=== PATIENT | female | born 1960 | race Caucasian/White ===

== ENCOUNTER 2022-07-31 10:53 | Emergency (ER) | payer OTHER, SELFPAY ==
[2022-07-31 11:07] VITALS: BP 174/75; PULSE 99; RESP 18; TEMP 36.4; O2SAT 96; BMI 29.7
--- NOTE | 2022-07-31 11:33 | CRLHL7_ITS ---
For Patients: As a result of the Century Cures Act, medical imaging exams and procedure reports are released immediately into your electronic medical record. You may view this report before your referring provider. If you have questions, please contact your health care provider. INDICATION: Right-sided pain, history of renal stones. COMPARISON: None. TECHNIQUE: Noncontrast CT of the abdomen and pelvis. FINDINGS: Right lower lobe calcified granuloma. Normal heart size. No pericardial effusion. Normal liver size and contour. Numerous hepatic calcifications. Diffuse hepatic steatosis. Normal gallbladder. No biliary dilatation. Diffuse splenic calcifications. The pancreas, adrenal glands, stomach and duodenum appear normal. Tiny nonobstructing left-sided renal calculi. There is a right proximal ureteral calculus (series 2 image 61) measuring approximately 1.1 cm. No significant hydronephrosis. There is inflammatory fat stranding at the UPJ on the right. Normal course and caliber of the abdominal aorta and the IVC. There is moderate atherosclerotic disease of the abdominal aorta. The patient has no lymphadenopathy. Uterus absent. Bladder unremarkable. No bowel obstruction. No bowel wall thickening. No free fluid. No significant body wall or osseous abnormality. IMPRESSION: 1. Right UPJ calculus measuring 1.1 cm with associated periureteral fat stranding and urothelial thickening which may be infectious or inflammatory. 2. No significant hydronephrosis. 3. Severe hepatic steatosis. Please note that all CT scans at this facility use dose modulation, iterative reconstruction, and/or weight-based dosing when appropriate to reduce radiation dose to as low as reasonably achievable. Dictated by Donald Gasca MD @ 07/31/2022 12:41:43 PM (Electronically Signed)
--- NOTE | 2022-07-31 11:34 | ED.GENADULT ---
HPI - General Adult General Chief complaint: Flank Pain Stated complaint: Lower abdominal pain, nausea Time Seen by Provider: 07/31/22 11:12 History of Present Illness HPI narrative: This 62-year-old female comes in reporting right flank pain radiating to the right upper and lower abdomen. She states that she has history of many kidney stones in the past and symptoms are similar. She reports nausea and vomiting. She states that she can not get comfortable and that movement or position does not seem to make any difference. She also reports hematuria. Related Data Home Medications Medication Instructions Recorded Confirmed aspirin 81 mg tablet,delayed 81 mg PO QDAY 02/28/22 release atorvastatin 10 mg tablet 10 mg PO QPM 02/28/22 multivitamin 1 tab PO QDAY 02/28/22 Previous Rx's Medication Instructions Recorded tramadol 50 mg tablet 50 - 100 mg PO Q6H PRN pain #60 02/28/22 tabs glipizide 10 mg tablet, extended 10 mg PO QDAY #90 tabs 03/01/22 release 24 hr metformin 500 mg tablet 1,000 mg PO BIDWMEAL #360 tabs 03/02/22 gabapentin 300 mg capsule See Rx Instructions .Route 04/15/22 .COMPLEX #360 caps hydrocodone 5 mg-acetaminophen 325 1 tab PO Q4-6H PRN pain #30 tabs 07/31/22 mg tablet ketorolac 10 mg tablet 10 mg PO TID 5 days #20 tabs 07/31/22 ondansetron HCl 4 mg tablet 4 mg PO Q6H #20 tabs 07/31/22 tamsulosin 0.4 mg capsule (Flomax) 0.4 mg PO DAILY #10 caps 07/31/22 Allergies Allergy/AdvReac Type Severity Reaction Status Date / Time Sulfa (Sulfonamide Allergy Verified 07/31/22 11:07 Antibiotics) Review of Systems Status of ROS: Reports: 10 or more systems reviewed and unremarkable except as noted in History and below Narrative: Constitutional: No fevers, no weight gain or loss. Eyes: No discharge. No vision changes. HENT: No congestion, no sore throat, no ear pain. Cardiovascular: No chest pain, no palpitations. Respiratory: No shortness of breath, no wheezes, no cough. Gastrointestinal: Right flank pain and abdominal pain with nausea and vomiting. Genitourinary: No dysuria. She has gross hematuria. Musculoskeletal: Normal range of motion. Skin: No rashes, no pruritis. Neurological: No dizziness, weakness, sensory change, speech change. Endo/Heme/Allergies: No bruising or bleeding. No polydipsia. Pysch: no suicidality, no anxiety, no insomnia. All other systems reviewed and are negative. [facility] Medical History (Updated 07/31/22 @ 15:30 by Joseph Boyer MD) Chronic back pain Surgical History (Updated 02/28/22 @ 12:30 by Joseph Arita MD) Status post appendectomy Status post bilateral oophorectomy Status post Status post hysterectomy Exam Narrative: Exam Narrative: Constitutional: Well-developed, well-nourished, no acute distress. HEENT: Normocephalic, atraumatic. Neck: Normal range of motion. Nontender. Supple. Heart: Regular. No murmurs. Normal rate. Intact distal pulses. Lungs: Clear to auscultation. No chest discomfort. No wheezes, rhonchi, or rales. Abdomen: Normal bowel sounds. Tenderness in the right flank and right abdomen.. No rebound tenderness. Genitalia: Deferred. Back: No midline tenderness. Normal range of motion. Extremities: Normal range of motion. No injury. Skin: Intact. No rash. Warm. No erythema or pallor. Neurologic: No altered sensation. No weakness. Alert and oriented. Psychiatric: No suicidality. No anxiety or depression. No insomnia. Nursing notes and vitals signs are reviewed. Const: Vital Signs, click to edit/add: Vital Signs - 24 hr 07/31/22 11:07 Temperature 97.5 F L Pulse Rate [Right Pulse Oximeter] 99 Respiratory Rate 18 Blood Pressure [Ri ght Upper Arm] 174/75 H Pulse Oximetry 96 Oxygen Delivery Me thod Room Air Course Vital Signs Vital signs: Initial Vital Signs Temperature 97.5 F L 07/31/22 11:07 Temperature Source Temporal Artery Scan 07/31/22 11:07 Pulse Rate 99 07/31/22 11:07 Respiratory Rate 18 07/31/22 11:07 Blood Pressure 174/75 H 07/31/22 11:07 Blood Pressure Mean 108 07/31/22 11:07 Blood Pressure Position Sitting 07/31/22 11:07 Pulse Oximetry 96 07/31/22 11:07 Oxygen Delivery Method 12/29/22 11:07 Vital Signs Temperature 97.5 F L 07/31/22 11:07 Pulse Rate 99 07/31/22 11:07 Respiratory Rate 18 07/31/22 11:07 Blood Pressure 174/75 H 07/31/22 11:07 Pulse Oximetry 96 07/31/22 11:07 Oxygen Delivery Method 07/31/22 11:07 Temperature 97.5 F L 07/31/22 11:07 Pulse Rate 99 07/31/22 11:07 Respiratory Rate 18 07/31/22 11:07 Blood Pressure 174/75 H 07/31/22 11:07 Pulse Oximetry 96 07/31/22 11:07 Oxygen Delivery Method 07/31/22 11:07 Medical Decision Making MDM Narrative Medical decision making narrative: This patient comes in with right flank and abdominal pain as described above. She has a history of kidney stones and does report gross hematuria recently. Urinalysis does show gross hematuria but no sign of infection. CT imaging identifies a large stone in the proximal ureter on the right side. This measures at 1.1 cm. The patient received IV doses of Dilaudid 0.5 mg and Toradol 30 mg along with Zofran 4 mg. This brought sufficient but somewhat temporary relief to her pain. Attempt was made to connect her with a urologist but no beds are available. A call was made to 14 hospitals to arrange for some kind of resource for for this patient but none were available for transfer. Additionally our own hospital is full with patient's boarding in the ER. I spoke then with a urologist glue bone drier at [facility], Dr. Leonard, who states that she is okay to return home with pain medication because there is no other complication. She will need help and he is able to see her after the holiday this coming week in his clinic. This phone number is provided for the patient. I instructed the patient to return if pain is not adequately controlled or other symptoms develop. Lab Data Labs: Lab Results 07/31/22 07/31/22 07/31/22 Range/Units 11:23 11:40 11:40 WBC 9.68 (4.50-11.00) K/uL RBC 4.88 (4.00-5.20) m/uL Hgb 14.2 (12.0-16.0) gm/dL Hct 42.9 (33.0-51.0) % MCV 88 (80-100) fL MCH 29 (26-34) pg MCHC 33 (32-36) gm/dL RDW Coeff of Skyler 12.3 (11.5-15.5) % Plt Count 309 (140-440) K/uL Neut % (Auto) 66.7 (42.0-72.0) % Lymph % (Auto) 25.5 (20-44) % [place] % (Auto) 4.9 (0.0-11.0) % Eos % (Auto) 2.2 (0.0-7.0) % Baso % (Auto) 0.3 (0.0-3.0) % Neut # (Auto) 6.46 (1.7-7.0) K/uL Lymph # (Auto) 2.47 (0.90-2.90) K/uL [place] # (Auto) 0.50 (0.00-0.90) K/UL Eos # (Auto) 0.21 (0.00-0.50) K/uL Baso # (Auto) 0.03 (0.00-0.30) K/uL Sodium 138 (135-149) mmol/L Potassium 4.8 (3.6-5.1) mmol/L Chloride 106 (96-114) mmol/L Carbon Dioxide 19 L (20-32) mmol/L BUN 18 (7-30) mg/dL Creatinine 0.6 (0.5-1.5) mg/dL Estimated Creat Clear 51.02 Estimated GFR 102 ml/min Glucose 320 H (60-115) mg/dL Calcium 9.3 (8.4-10.6) mg/dL Urine Color Karol A (Yellow) Urine Appearance Slightly Cloudy A (Clear) Urine pH 6.0 (5.0-8.5) Ur Specific Fowler 1.025 (1.000-1.030) Urine Protein 1+ A (Negative) Urine Glucose (UA) 3+ A (Negative) Urine Ketones 1+ A (Negative) Urine Blood 3+ A (Negative) Urine Nitrite Negative (Negative) Urine Bilirubin Negative (Negative) Urine Urobilinogen 0.2 (0.2-1.0) Ur Leukocyte Esterase Negative (Negative) Urine RBC 50-100 A (0-2) Urine WBC 0-2 (0-5) Ur Squamous Epith Cells Few (None-Few) Urine Bacteria Few A (None) Imaging Data CT scan - abdomen: Attestation: I have reviewed the pertinent imaging results. Radiologist's impression: 1. Right UPJ calculus measuring 1.1 cm with associated periureteral fat stranding and urothelial thickening which may be infectious or inflammatory. 2. No significant hydronephrosis. 3. Severe hepatic steatosis. Discharge Plan Discharge Clinical Impression: Calculus, ureteral Patient Disposition: Home w/ Parent or Adult Condition: Stable Additional Instructions: Take medication as needed and indicated. Arrange follow-up appointment with urology clinic by calling [phone]. State to the hotel or motel receptionist that Dr. Leonard is wanting to see her in clinic as soon as is possible next week. Return to emergency department if symptoms are worsening. Prescriptions: New hydrocodone-acetaminophen 5-325 mg tablet 1 tab PO Q4-6H PRN (Reason: pain) Qty: 30 0RF ondansetron HCl 4 mg tablet 4 mg PO Q6H Qty: 20 0RF ketorolac 10 mg tablet 10 mg PO TID 5 Days Qty: 20 0RF tamsulosin [Flomax] 0.4 mg capsule 0.4 mg PO DAILY Qty: 10 2RF No Action atorvastatin 10 mg tablet 10 mg PO QPM aspirin 81 mg tablet,delayed release (DR/EC) 81 mg PO QDAY multivitamin Tablet 1 tab PO QDAY tramadol 50 mg tablet 50 - 100 mg PO Q6H PRN (Reason: pain) Qty: 60 1RF glipizide 10 mg tablet extended release 24hr 10 mg PO QDAY Qty: 90 3RF metformin 500 mg tablet 1,000 mg PO BIDWMEAL Qty: 360 3RF gabapentin 300 mg capsule See Rx Instructions .ROUTE .COMPLEX Qty: 360 3RF Dose Instruction: TAKE 1 CAPSULE EVERY MORNING, 1 CAPSULE AT 2PM AND 2 CAPSULES AT BEDTIME Rx Instructions: TAKE 1 CAPSULE EVERY MORNING, 1 CAPSULE AT 2PM AND 2 CAPSULES AT BEDTIME Follow Up/Referrals: Joseph Arita MD [Primary Care Provider] - Stand Alone Forms: [facility] Info Instructions
[2022-07-31 11:39] LABS: Appearance Urine Slightly Cloudy (Clear); Bilirubin Urine Negative (Negative); Blood Urine 3+ (Negative); Color Urine Amber (Yellow); Glucose Urine 3+ (Negative); Ketones Urine 1+ (Negative); Leukocyte Esterase Urine Negative (Negative); Nitrite Urine Negative (Negative); Protein Urine 1+ (Negative); Specific Gravity Urine 1.025 (1.000-1.030); Urobilinogen Urine 0.2 (0.2-1.0)
[2022-07-31] MEDS: ONDANSETRON 2 MG/ML inj 4 MG IVP (11:49)
[2022-07-31] MEDS: KETOROLAC 30 MG/ML inj IVP (11:49)
[2022-07-31] MEDS: HYDROmorphone 0.5 mg/0.5 ml inj IVP ×2 (11:49→15:48)
[2022-07-31 11:52] LABS: Basophils Absolute Auto 0.03 K/uL (0.00-0.30); Basophils Percent Auto 0.3 % (0.0-3.0); Eosinophils Absolute Auto 0.21 K/uL (0.00-0.50); Eosinophils Percent Auto 2.2 % (0.0-7.0); Hematocrit 42.9 % (33.0-51.0); Hemoglobin* 14.2 gm/dL (12.0-16.0); Immature Granulocytes Abs Auto 0.04 K/uL (0.00-0.30); Immature Granulocytes Pct Auto 0.4 %; Lymphocytes Absolute Auto 2.47 K/uL (0.90-2.90); Lymphocytes Percent Auto 25.5 % (20-44); Mean Corpuscular HGB Conc 33 gm/dL (32-36); Mean Corpuscular Hemoglobin 29 pg (26-34); Mean Corpuscular Volume 88 fL (80-100); Monocytes Percent Auto 4.9 % (0.0-11.0); Neutrophils Absolute Auto 6.46 K/uL (1.7-7.0); Neutrophils Percent Auto 66.7 % (42.0-72.0); Platelet Count* 309 K/uL (140-440); RDW Coefficient of Variation % 12.3 % (11.5-15.5); Red Blood Count 4.88 m/uL (4.00-5.20); White Blood Count* 9.68 K/uL (4.50-11.00)
[2022-07-31 11:52] LABS: Bacteria Urine Few; RBC Urine 50-100 (0-2); Squamous Epithelial Cell Urine Few (None-Few); WBC Urine 0-2 (0-5)
[2022-07-31 11:55] LABS: Slide Review Reflex No
[2022-07-31 12:03] LABS: Chloride* 106 mmol/L (96-114); Potassium* 4.8 mmol/L (3.6-5.1); Sodium* 138 mmol/L (135-149)
[2022-07-31 12:06] LABS: Blood Urea Nitrogen* 18 mg/dL (7-30); Carbon Dioxide* 19 mmol/L (20-32); Creatinine* 0.6 mg/dL (0.5-1.5); Est. Creatinine Clearance* 51.02; Estimated Glomerular Filt Rate 102 ml/min; Glucose* 320 mg/dL (60-115)
[2022-07-31 12:07] LABS: Calcium* 9.3 mg/dL (8.4-10.6)
== END 2022-07-31 15:56 | disposition home or self-care (01) ==
PROVIDERS: Emergency Provider Emergency Medicine Emergency Medical Services; PCP Family Medicine
DX: N20.1 Calculus of ureter (principal)
CPT/HCPCS: 36415; 74176; 80048; 81001; 85025; 87086; 96374; 96375; 96376; 99284; 99285; J1170; J1885; J2405

== ENCOUNTER 2022-08-19 13:15 | Outpatient (CLI) | payer OTHER, SELFPAY ==
[2022-08-19 17:49] LABS: Cholesterol* 239 mg/dL (90-199)
[2022-08-19 17:50] LABS: HDL Cholesterol* 42 mg/dL (>=50); LDL Cholesterol Calculated 142 mg/dL (<100); Triglycerides* 277 mg/dL (40-149)
== END 2022-08-19 13:16 | disposition home or self-care (01) ==
PROVIDERS: PCP Family Medicine; Visit Provider Family Medicine
DX: E78.5 Hyperlipidemia, unspecified (principal); E13.9 Other specified diabetes mellitus without complications; Z13.29 Encounter for screening for other suspected endocrine disorder
CPT/HCPCS: 80061; 84443

== ENCOUNTER 2022-09-04 10:07 | Outpatient (CLI) | payer OTHER, SELFPAY ==
--- NOTE | 2022-09-04 10:45 | CRLHL7_ITS ---
For Patients: As a result of the Cures Act, medical imaging exams and procedure reports are released immediately into your electronic medical record. You may view this report before your referring provider. If you have questions, please contact your health care provider. DIGITAL DIAGNOSTIC BILATERAL MAMMOGRAM USING TOMOSYNTHESIS AND COMPUTER-AIDED DETECTION CLINICAL HISTORY: LEFT breast lump. COMPARISON: 06/22/2028, 11/03/2018, 07/08/2017. TECHNIQUE: Digital BILATERAL mammogram in four projections. Tomosynthesis and CAD utilized. BREAST COMPOSITION: The breasts are almost entirely fatty. FINDINGS: 3D CC/MLO BILATERAL mammogram images submitted. No suspicious findings. No architectural distortion. No adenopathy. Benign calcifications. IMPRESSION: Normal BILATERAL mammograms. No evidence of breast malignancy. RECOMMENDATIONS: Annual BILATERAL screening mammography. BI-RADS Category 2: Benign A lay language report of this examination will be provided to the patient. Dictated by Power Pena MD @ 09/05/2022 8:21:21 AM jj/Dictated by: Power Pena MD @ 09/05/2022 8:21:00 AM (Electronically Signed)
--- NOTE | 2022-09-04 11:00 | CRLHL7_ITS ---
For Patients: As a result of the Century Cures Act, medical imaging exams and procedure reports are released immediately into your electronic medical record. You may view this report before your referring provider. If you have questions, please contact your health care provider. Indication: MASS OF LEFT SIDE OF NECK Technique: Post contrast CT chest. 86 cc Isovue 370 intravenous contrast. Please note that all CT scans at this facility use dose modulation, iterative reconstruction, and/or weight-based dosing when appropriate to reduce radiation dose to as low as reasonably achievable. Comparison: CT neck same day Findings: Benign calcified granuloma within the right lower lobe measuring 7 millimeters, unchanged from CT abdomen 07/31/2022. Mild dependent atelectasis. No pleural effusion. No pulmonary edema. Calcified granulomas within the liver and spleen. Diffuse hepatic steatosis. Adrenal glands normal. No hiatal hernia. Visualized stomach appears normal. No mediastinal, hilar or axillary adenopathy. Ovoid soft tissue mass in the left supraclavicular space measuring 2.8 x 2.2 cm. Thyroid normal, as visualized. No fracture. Impression: 2.8 x 2.2 cm left supraclavicular mass. This is amenable to ultrasound-guided core needle biopsy at [facility]. Sequela of granulomatous disease. Please note that all CT scans at this facility use dose modulation, iterative reconstruction, and/or weight-based dosing when appropriate to reduce radiation dose to as low as reasonably achievable. Dictated by Power Pena MD @ 09/05/2022 10:06:02 AM (Electronically Signed)
--- NOTE | 2022-09-04 11:00 | CRLHL7_ITS ---
For Patients: As a result of the Century Cures Act, medical imaging exams and procedure reports are released immediately into your electronic medical record. You may view this report before your referring provider. If you have questions, please contact your health care provider. INDICATION: Left neck mass. COMPARISON: None available. TECHNIQUE: CT soft tissue neck with IV contrast. ICD 370, 86 cc FINDINGS: Normal bilateral parotid and submandibular glands. Normal thyroid gland. In the left supraclavicular region, there is an ovoid soft tissue mass measuring 2.6 x 2.2 cm (series 4, image 54) which likely represents an enlarged lymph node. Smaller mildly prominent but otherwise normal-sized lymph nodes inferior to the left parotid gland measuring 14 mm in maximal diameter (series forms 37) and superficial to the left sternocleidomastoid muscle open measuring 11 mm (series 4, image 41). No enlarged lymph nodes elsewhere within the neck. No superior mediastinal adenopathy. Nasopharynx and oropharynx are clear. No inflammation within the parapharyngeal fat pads or retropharyngeal space. No definite mass or asymmetry at the base of tongue. Normal thickness of the epiglottis. Normal glottis with symmetric vocal cords. Lung apices are clear. Normal alignment of cervical spine. No prevertebral soft tissue swelling. Visualized paranasal sinuses and mastoid air cells are clear. IMPRESSION: 1. In the left supraclavicular region, ovoid soft tissue mass measures 2.6 x 2.2 centimeters. Finding likely represents an enlarged lymph node. This may be amenable to tissue sampling under ultrasound guidance. 2. Smaller mildly prominent but otherwise normal-sized lymph nodes in the left neck as described above. 3. No adenopathy elsewhere. 4. Normal deep soft tissues of the neck. 5. No prevertebral soft tissue swelling Please note that all CT scans at this facility use dose modulation, iterative reconstruction, and/or weight-based dosing when appropriate to reduce radiation dose to as low as reasonably achievable. Dictated by Boogie Mitchell MD @ 09/05/2022 8:30:26 AM (Electronically Signed)
[2022-09-04 11:19] LABS: Creatinine* 0.6 mg/dL (0.5-1.5); Estimated Glomerular Filt Rate 102 ml/min
== END 2022-09-04 10:08 | disposition home or self-care (01) ==
LOC: MAMMO 10:08
PROVIDERS: PCP Family Medicine; Visit Provider Surgery
DX: R22.1 Localized swelling, mass and lump, neck (principal); N63.20 Unspecified lump in the left breast, unspecified quadrant; R59.1 Generalized enlarged lymph nodes
CPT/HCPCS: 36415; 70491; 71260; 77066; 82565; G0279; Q9967

== ENCOUNTER 2022-09-22 12:47 | Outpatient (CLI) | payer OTHER, SELFPAY | END 2022-09-22 12:48 | disposition home or self-care (01) | LOC: AMB 09-24 22:43 | PROVIDERS: PCP Family Medicine; Visit Provider Emergency Medicine | DX: S49.81XA Other specified injuries of right shoulder and upper arm, initial encounter (principal); S89.91XA Unspecified injury of right lower leg, initial encounter; W00.0XXA Fall on same level due to ice and snow, initial encounter; Y92.046 Garden or yard of boarding-house as the place of occurrence of the external cause | CPT/HCPCS: A0425; A0433 ==

== ENCOUNTER 2023-06-15 08:44 | Outpatient (CLI) | payer OTHER, SELFPAY | END 2023-06-15 08:45 | disposition home or self-care (01) | LOC: LONREF 08:48 | PROVIDERS: PCP Family Medicine; Visit Provider Family Medicine | DX: Z00.00 Encounter for general adult medical examination without abnormal findings (principal); E78.5 Hyperlipidemia, unspecified | CPT/HCPCS: 80061 ==

== ENCOUNTER 2024-06-28 10:51 | Outpatient (CLI) | payer BC, SELFPAY ==
--- OUTSIDE RECORDS SUMMARY | 2024-06-28 10:56 | XMS_ITS | Clinical Summary ---
Author Organization Formerly [facility], 1928–1983 Address [address] [address] Care Team Providers Care Premium Cancellation Clerk Name Role Phone Srikanth Arita MD Primary Care Provider [phone] Source Comments You are receiving this document as you are listed as the primary care provider,follow-up provider, or the patient has been referred to you for consultation.This is in compliance with the Medicare and[facility] EHR Incentive [facility],which states Providers who transition their patient to another setting of careor provider of care or refers their patient to another provider of care shouldprovide summary care record for each transition of care or referral. [employer] Allergies Active Allergy Reactions Criticality Noted Date Comments Opium Headache,Nausea And Vomiting 10/20/2018 Other 09/04/1995 PN: LW Other1: -NKA Review Contrast Media 09/04/1995 PN: LW CM1: CONTRAST- NKA Reaction : Review Food Intolerance PN: LW FI1: NKA Sulfa Antibiotics Nausea High 08/12/2022 Tamsulosin Gastrointestinal,Nausea High 08/12/2022 Acetaminophen Gastrointestinal 12/10/2022 Nausea Medications Medication Sig Dispensed Refills Start Date End Date Status rosuvastatin (CRESTOR) 5 MG tablet Take 1 Tablet (5 mg) by mouth daily. 90 Tablet 3 10/22/2022 Active metFORMIN (GLUCOPHAGE) 500 MG tablet Take 2 Tablets (1,000 mg) by mouth two times a day. 10/22/2022 Active insulin lispro, human, (HUMALOG) 100 UNIT/ML injection pen Inject 2-10 Units subcutaneously three times daily before meals. Blood sugar 150-200 give 2 units Blood sugar 201-250 give 4 units Blood sugar 251-300 give 6 units Blood sugar 301-350 give 8 units Blood sugar greater than 351 give 10 units. If blood sugar is greater than 351 give insulin as directed. Recheck blood sugar in 2 hours. If blood sugar is still higher than 350, call your provider 1 mL 3 10/22/2022 Active glipiZIDE XL (GLUCOTROL XL) 10 MG 24 hour release tablet Take 2 Tablets (20 mg) by mouth daily. 90 Tablet 3 10/22/2022 Active gabapentin (NEURONTIN) 300 MG capsule Take 3 Capsules (900 mg) by mouth daily at bedtime. 10/22/2022 Active Cholecalciferol (VITAMIN D3) 25 MCG TABSIndications:V itamin D Deficiency Take 2 Tablets (2,000 Units) by mouth daily. Indications: Vitamin D Deficiency 100 Tablet 3 10/22/2022 Active insulin glargine (LANTUS) 100 UNIT/ML pen Inject 10 Units subcutaneously daily. 1 mL 1 10/28/2022 Active pioglitazone (ACTOS) 15 MG tablet Take 1 Tablet (15 mg) by mouth daily. 11/25/2022 Active traMADol (ULTRAM) 50 MG tablet TAKE 1 TO 2 TABLETS BY MOUTH EVERY 6 HOURS NEEDED FOR PAIN. Active Active Problems Patient Care Coordination No te Formatting of this note migh t be different from the original. [Pooooovy5 A; Problem Noted Date Diagnosed Date Aftercare following surgery of the musculoskelet al system 12/05/2022 Overview (12/05/2022): Added automatically from request for surgery [id number] Arthrofibrosis of knee joint, right 12/05/2022 Overview (12/05/2022): Added automatically from request for surgery [id number] Stiff elbow, right 12/05/2022 Overview (12/05/2022): Added automatically from request for surgery [id number] Closed fracture of right distal radius 3 Overview (09/23/2022): Added automatically from request for surgery [id number] Dislocation of right elbow 09/22/2022 Overview (09/23/2022): Added automatically from request for surgery [id number] Closed fracture of right tibial plateau 09/22/19 23 Overview (09/23/2022): Added automatically from request for surgery [id number] Type 2 diabetes mellitus wit hout complication, without long-term current use of insulin 11/10/2018 Migraine headache 11/10/2018 Nephrolithiasis 11/10/2018 Fibromyalgia 11/10/2018 Elevated C-reactive protein (CRP) 11/10/2018 Immunizations Name Administration Dates Next Due PPSV23 (Pneumovax) 02/16/2018 TB Skin Test - Inpt (PPD) 10/13/2022,10/02/2022( ),09/29/2022 Tdap 02/16/2018 Social History Tobacco Use Types Packs/Day Years Used Date Smoking Tobacco: Never Smokeless Tobacco: Never Alcohol Use Standard Drinks/Week Comments Never 0 (1 standard drink = 0.6 oz pur e alcohol) Sex and Gender Information Value Date Recorded Sex Assigned at Not on file Gender Identity Not on file Sexual Orientation Not on file Last Filed Vital Signs Vital Sign Reading Time Taken Comments Blood Pressure 135/66 12/10/2022 11:50 AM CDT Pulse 77 12/10/2022 11:50 AM CDT Temperature 36.7 C (98 F) 12/10/2022 11:50 AM CDT Respiratory Rate 15 12/10/2022 11:50 AM CDT Oxygen Saturation 98% 12/10/2022 11:50 AM CDT Inhaled Oxygen Concentration - - Weight 75.8 kg (167 lb) 12/10/2022 9:49 AM CDT Height 165.1 cm (5' 5) 12/10/2022 9:49 AM CDT Body Mass Index 27.79 12/10/2022 9:49 AM CDT Plan of Treatment Health Maintenance Due Date Last Done Comments Cervical Cancer Screening Due 1961 Colon Cancer Screening Plan Due 1961 Diabetes: Eye Exam 1961 Diabetes: Foot Exam 1961 Diabetes: Lipid Panel 1961 Diabetes: Urine Microalbumin 1961 Hep C Screening (Preventive Services) 1961 Mammogram 1961 HIV Screening (Preventive Services) 1977 Adult Preventive Visit 1979 Zoster/Shingles (1 of 2) 2011 Pneumococcal (2 - PCV) 02/16/2019 02/16/2018 Diabetes: HGBA1C 03/25/2023 09/25/2022 Diabetes: Creatinine 09/22/2023 09/22/2022 COVID-19 Vaccine (1 - 2023-2 5 season) 2024 Influenza (#1) 2024 DTaP/Tdap/Td (2 - Tdap) 02/17/2028 02/16/2018 RSV (1 - 1-dose 75+ series) 02/07/2036 HepA Aged Out No longer eligi ble based on patient's age to complete this topic HepB Aged Out No longer eligi ble based on patient's age to complete this topic Hib Aged Out No longer eligi ble based on patient's age to complete this topic IPV (Polio) Aged Out No longer eligi ble based on patient's age to complete this topic Infant RSV Aged Out No longer eligi ble based on patient's age to complete this topic MCV4 Aged Out No longer eligi ble based on patient's age to complete this topic Medical Devices Implanted Type Area Nuclear Medicine Medical Director Device Identifier Shelf Expiration Date Model / Serial / Lot Kit Internal Brace Jumpstart - [id number] Implanted:Qty: 1 on 09/24/2022 by Power Fox MD at [facility] DEVICE Right: [employer] 07/02/2024 AR-1788J-C P / / [id number] Scr Va Lk Sftp 3.5x70 - [id number] Implanted:Qty: 2 on 09/24/2022 by Power Fox MD at [facility] DEVICE Right: TIBIA DePuy [employer]ynthes - Trauma 02.127.170 / / Scr Bird Sftp Ss 3.5x36 F-Thrd - [id number] Implanted:Qty: 1 on 09/24/2022 by Power Fox MD at [facility] DEVICE Right: TIBIA [employer]Puy [employer]ynthes - Trauma 204.836 / / Scr Bird Sftp Ss 3.5x38 F-Thrd - [id number] Implanted:Qty: 2 on 09/24/2022 by Power Fxo MD at [facility] DEVICE Right: ELBOW [employer]ynthes - Trauma 204.838 / / Scr Bird Sftp Ss 3.5x30 F-Thrd - [id number] Implanted:Qty: 2 on 09/24/2022 by Power Fox MD at [facility] DEVICE Right: ELBOW [employer] - Trauma 204.830 / / Scr Bird Sftp Ss 3.5x32 F-Thrd - [id number] Implanted:Qty: 1 on 09/24/2022 by Power Fox MD at [facility] DEVICE Right: ELBOW [employer] - Trauma 204.832 / / Kit Internal Brace Jumpstart - [id number] Implanted:Qty: 1 on 09/24/2022 by Power Fox MD at [facility] DEVICE Right: [employer] 07/02/2024 AR-1788J-C P / / [id number] Plt Va-Lcp Dist Rad Rt 6h/2h - [id number] Implanted:Qty: 1 on 09/24/2022 by Power Fox MD at [facility] DEVICE Right: WRIST [employer]Puy [employer] - Trauma 02.111.620 / / Scr Lk Va 2.4x18 - [id number] Implanted:Qty: 3 on 09/24/2022 by Power Fox MD at [facility] DEVICE Right: WRIST [employer] - Trauma 02.210.118 / / Scr Bird Sftp T8 2.7x12 - [id number] Implanted:Qty: 1 on 09/24/2022 by Power Fox MD at [facility] DEVICE Right: WRIST [employer]ynthes - Trauma 202.872 / / Scr Bird Sftp T8 2.7x14 - [id number] Implanted:Qty: 1 on 09/24/2022 by Power Fox MD at [facility] DEVICE Right: WRIST [employer] - Trauma 202.874 / / Bone Filler Norguero Drtorito [id number] - [id number] Implanted:Qty: 1 on 09/24/2022 by Power Fox MD at [facility] DEVICE Right: TIBIA [employer] - Trauma 02/27/2023 07.704.010 S / / [id number] Plt Prox Tib Rt 3.5x117 6h - [id number] Implanted:Qty: 1 on 09/24/2022 by Power Fox MD at [facility] DEVICE Right: TIBIA [employer]ynthes - Trauma .127.220 / / Scr Va Lk Sftp 3.5x60 - [id number] Implanted:Qty: 1 on 09/24/2022 by Power Fox MD at [facility] DEVICE Right: TIBIA [employer]ynthes - Trauma .127.160 / / Scr Va Lk Sftp 3.5x65 - [id number] Implanted:Qty: 1 on 09/24/2022 by Power Fox MD at [facility] DEVICE Right: TIBIA [employer]ynthes - Trauma 02.127.165 / / Procedures Procedure Name Priority Date/Time Associated Diagnosis Comments HGB A1C Add-On 09/25/2022 7:01 AM MULTISENSOR INTELLIGENCE OFFICER BASIC METABOLIC PANEL STAT 09/22/2022 3:01 PM MULTISENSOR INTELLIGENCE OFFICER from Last 3 Months or Most Recently Relevant to Health Maintenance Results * (ABNORMAL) Hgb A1C (09/25/2022 7:01 AM MULTISENSOR INTELLIGENCE OFFICER) Hemoglobin A1C 8.9(H) <=5.6 % 09/26/2022 8:26 AM [facility] Estimated Average Glucose (Calc) 209 < 117 mg/dL 09/26/2022 8:26 AM [facility] Comment:Estimated average gl ucose (eAG) converts A1c into glucose units (mg/dL) and estimates average glucose over the past approximately 3 months. The eAG reference interval (<117 mg/dL) corresponds to an A1c of <5.7%. Blood Venipuncture / Unknown 09/25/2022 7:01 AM MULTISENSOR INTELLIGENCE OFFICER 09/25/2022 7:46 AM MULTISENSOR INTELLIGENCE OFFICER [facility]ENTRAL [facility] - 09/26/2022 8:26 AM MULTISENSOR INTELLIGENCE OFFICER For patients not previously diagnosed with diabetes: 5.7-6.4%: Increased risk for diabetes 6.5% and greater: Diagnostic for diabetes For patients diagnosed with diabetes: <8.0%: Goal of therapy for ages 18-75 Clinicians may recommend a higher or lower goal for specific individuals. Milagros Levin PA-C LAB_1 [facility] [address] [id number], [facility] [phone] * (ABNORMAL) Basic Metabolic Panel (09/22/2022 3:01 PM MULTISENSOR INTELLIGENCE OFFICER) Sodium 137 136 - 145 mmol/L 09/22/2022 3:[address] [facility] Potassium 4.6 3.5 - 5.1 mmol/L 09/22/2022 3:[address] [facility] Comment:Specimen slightly he molyzed. Hemolysis may affect result. Chloride 104 98 - 109 mmol/L 09/22/2022 3:[address] [facility] CO2 15(L) 20 - 29 mmol/L 09/22/2022 3:[address] [facility] Anion Gap 18(H) 7 - 16 mmol/L 09/22/2022 3:[address] [facility] Calcium 9.7 8.4 - 10.4 mg/dL 09/22/2022 3:[address] [facility] BUN 13 7 - 26 mg/dL 09/22/2022 3:[address] [facility] Creatinine 0.58 0.55 - 1.02 mg/dL 09/22/2022 3:[address] [facility] Glucose 316(H) 70 - 100 mg/dL 09/22/2022 3:[address] [facility] Comment:The given reference range is for the fasting state. Non-fasting reference range for glucose is 70 - 180 mg/dL. GFR, Estimated >60 >60 mL/min/1.7 3m2 09/22/2022 3:[address] [facility] Blood Venipuncture / Unknown 09/22/2022 3:01 PM MULTISENSOR INTELLIGENCE OFFICER 09/22/2022 3:13 PM MULTISENSOR INTELLIGENCE OFFICER Keith Salde MD LAB_[address] [address], [facility] [phone] from Last 3 Months or Most Recently Relevant to Health Maintenance Advance Directives Documents on File Type Date Recorded Patient Fixed Capital Clerk Expl anation HEALTHCARE DIRECTIVE 09/29/2022 CV CODE STATUS 09/29/2022 * Full Code (Latest Code Status on File) Date Activated Date Inactivated Comments 09/29/2022 4:48 PM 10/27/2022 1:17 PM * Full Code Date Activated Date Inactivated Comments 09/23/2022 12:26 AM 09/29/2022 4:05 PM Care Teams Premium Cancellation Clerk Relationship Specialty Start Date End Date Srikanth Arita MD [facility] [address] [place] [address] PCP - General Family Practice 10/18/18
--- OUTSIDE RECORDS SUMMARY | 2024-06-28 10:56 | XMS_ITS | Clinical Summary ---
Author Organization [employer] [facility] Address [place], [place] [address] Care Team Providers Care Electronics Instructor Name Role Phone Joseph Arita MD Primary Care Provider [phone] Allergies Active Allergy Reactions Criticality Noted Date Comments Acetaminophen Nausea Only 12/10/2022 Nausea Tamsulosin Nausea Only High 08/12/2022 Sulfa (Sulfonamide Antibiotics) Nausea Only High 05/2023 Medications Medication Sig Dispensed Refills Start Date End Date Status gabapentin (NEURONTIN) 300 mg capsule Take 900 mg by mouth at bedtime. 04/05/2022 Active glipiZIDE extended-release (GLUCOTROL XL) 10 mg Extended-Release tablet Take 10 mg by mouth once daily. 02/26/2022 Active metFORMIN (GLUCOPHAGE) 500 mg tablet Take 500 mg by mouth two times daily with meals. 05/30/2022 Active ondansetron (ZOFRAN) 4 mg tablet Take 4 mg by mouth every 6 hours. 07/31/2022 Active traMADoL (ULTRAM) 50 mg tablet Take by mouth every 6 hours if needed. 02/28/2022 Active rosuvastatin calcium (ROSUVASTATIN 10 MG HALF TABLET) every day 08/19/2022 Active pioglitazone (ACTOS) 15 mg as half tablet every day 08/27/2022 Active Active Problems Problem Noted Date Diagnosed Date Ureteral stone with hydronephrosis Social History Tobacco Use Types Packs/Day Years Used Date Smoking Tobacco: Former Cigarettes Q uit: 2001 Smokeless Tobacco: Never Tobacco Cessation:Counseling Given: Not Answered Alcohol Use Standard Drinks/Week Comments Not Currently 0 (1 standard drink = 0.6 oz pur e alcohol) Sex and Gender Information Value Date Recorded Sex Assigned at Not on file Gender Identity Not on file Sexual Orientation Not on file Obstetrics History Last Filed Vital Signs Vital Sign Reading Time Taken Comments Blood Pressure 116/70 01/08/2023 3:11 PM CDT Pulse 82 01/08/2023 3:11 PM CDT Temperature 36 C (96.8 F) 08/13/2022 1:29 PM [employer]IN[employer]ICE SOCIAL WORKER Respiratory Rate 14 01/08/2023 3:11 PM CDT Oxygen Saturation 91% 08/13/2022 2:30 PM [employer] SOCIAL WORKER Inhaled Oxygen Concentration - - Weight 81.4 kg (179 lb 6.4 oz) 08/13/2022 10:09 AM CR[employer]INAL JUSTICE SOCIAL WORKER Height 162.6 cm (5' 4) 08/13/2022 10:09 AM CR[employer]INAL JUSTICE SOCIAL WORKER Body Mass Index 30.79 08/13/2022 10:09 AM CR[employer]AL JUSTICE SOCIAL WORKER Plan of Treatment Health Maintenance Due Date Last Done Comments Tdap 02/07/1972 Depression screening for age 12+ 1973 HIV for age 15-65 02/07/1976 BMI (ht and wt on same day) for age 18+ 1979 Hepatitis C screening for ag e 18-79 1979 Tetanus booster 1981 Pap test for age 21-65 1982 Colonoscopy through age 75 2006 Lipids for age 45-75 2006 Mammogram for age 45-75 2006 Zoster (shingles) series for age 50+ (1 of 2) 2011 COVID-19 vaccine series (2023- season) 2024 Influenza for age 50-64 04/03/2024 Pneumococcal series for age 6-64 Aged Out No longer eligible based on patient's age to complete this topic Medical Devices Implanted Type Area Education Professor Device Identifier Shelf Expiration Date Model / Serial / Lot Stent Uret [id number] Percuflex Hydroplus - [id number] Implanted:Qty: 1 on 08/13/2022 by Juan J Samson MD at [facility] Right: [employer] Urology 05/27/2025 [id number] / / [id number] Advance Directives * Full Code (Latest Code Status on File) Date Activated Date Inactivated Comments 08/13/2022 9:33 AM 08/13/2022 6:22 PM Question Answer Comments Code Status Discussion: Reviewed Preferences Care Teams Electronics Instructor Relationship Specialty Start Date End Date Joseph Arita MD PCP - General Family Practice 08/12/22
== END 2024-06-28 10:52 | disposition home or self-care (01) ==
PROVIDERS: PCP Family Medicine; Visit Provider Family Medicine
DX: Z00.00 Encounter for general adult medical examination without abnormal findings (principal); E78.5 Hyperlipidemia, unspecified; E13.9 Other specified diabetes mellitus without complications; R30.0 Dysuria
CPT/HCPCS: 80048; 80061; 87086

== ENCOUNTER 2025-05-01 13:50 | Outpatient (CLI) | payer OTHER, SELFPAY | END 2025-05-01 13:51 | disposition home or self-care (01) | PROVIDERS: PCP Family Medicine; Visit Provider Family Medicine | DX: E13.9 Other specified diabetes mellitus without complications (principal); E78.2 Mixed hyperlipidemia | CPT/HCPCS: 80048; 80061 ==